=== PATIENT | female | born 1935 | race Caucasian/White ===

== ENCOUNTER 2021-10-04 09:22 | Outpatient (CLI) | payer MEDICARE | END 2021-10-04 09:23 | disposition home or self-care (01) | LOC: CSHWCC 09:22 | PROVIDERS: ATTEND Nurse Practitioner Family | DX: L89.624 Pressure ulcer of left heel, stage 4 (principal); L89.621 Pressure ulcer of left heel, stage 1; I87.2 Venous insufficiency (chronic) (peripheral); S41.102D Unspecified open wound of left upper arm, subsequent encounter; I89.0 Lymphedema, not elsewhere classified; I70.202 Unspecified atherosclerosis of native arteries of extremities, left leg; I25.10 Atherosclerotic heart disease of native coronary artery without angina pectoris; I25.84 Coronary atherosclerosis due to calcified coronary lesion; I63.9 Cerebral infarction, unspecified; I10 Essential (primary) hypertension; Z74.01 Bed confinement status; Z91.81 History of falling | CPT/HCPCS: 11043; 97605; 99203; G0463 ==

== ENCOUNTER 2021-10-11 14:36 | Outpatient (CLI) | payer MEDICARE | END 2021-10-11 14:37 | disposition home or self-care (01) | LOC: CSHWCC 14:36 | PROVIDERS: ATTEND Nurse Practitioner Family | DX: L89.621 Pressure ulcer of left heel, stage 1 (principal); L89.624 Pressure ulcer of left heel, stage 4; L89.896 Pressure-induced deep tissue damage of other site; S41.102D Unspecified open wound of left upper arm, subsequent encounter; I10 Essential (primary) hypertension; I25.84 Coronary atherosclerosis due to calcified coronary lesion; I63.9 Cerebral infarction, unspecified; I70.202 Unspecified atherosclerosis of native arteries of extremities, left leg; I87.2 Venous insufficiency (chronic) (peripheral); I89.0 Lymphedema, not elsewhere classified; Z74.01 Bed confinement status; Z91.81 History of falling | CPT/HCPCS: 99213; G0463 ==

== ENCOUNTER 2021-10-25 11:19 | Outpatient (CLI) | payer MEDICARE | END 2021-10-25 11:20 | disposition home or self-care (01) | LOC: CSHWCC 11:19 | PROVIDERS: ATTEND Nurse Practitioner Family | DX: L89.624 Pressure ulcer of left heel, stage 4 (principal); L89.621 Pressure ulcer of left heel, stage 1; L89.896 Pressure-induced deep tissue damage of other site; I87.2 Venous insufficiency (chronic) (peripheral); S41.102D Unspecified open wound of left upper arm, subsequent encounter; I10 Essential (primary) hypertension; I25.84 Coronary atherosclerosis due to calcified coronary lesion; I63.9 Cerebral infarction, unspecified; I70.202 Unspecified atherosclerosis of native arteries of extremities, left leg; I89.0 Lymphedema, not elsewhere classified; Z74.01 Bed confinement status; Z91.81 History of falling | CPT/HCPCS: 97139; G0463; 99213 ==

== ENCOUNTER 2021-11-04 14:50 | Outpatient (CLI) | payer MEDICARE | END 2021-11-04 14:51 | disposition home or self-care (01) | LOC: CSHWCC 14:50 | PROVIDERS: ATTEND Nurse Practitioner Family | DX: L89.621 Pressure ulcer of left heel, stage 1 (principal); L89.624 Pressure ulcer of left heel, stage 4; L89.890 Pressure ulcer of other site, unstageable; R60.0 Localized edema; I10 Essential (primary) hypertension; I25.84 Coronary atherosclerosis due to calcified coronary lesion; I63.9 Cerebral infarction, unspecified; I70.202 Unspecified atherosclerosis of native arteries of extremities, left leg; I87.2 Venous insufficiency (chronic) (peripheral); I89.0 Lymphedema, not elsewhere classified; Z74.01 Bed confinement status; Z91.81 History of falling ==

== ENCOUNTER 2021-12-07 13:01 | Outpatient (CLI) | payer MEDICARE | END 2021-12-07 13:02 | disposition home or self-care (01) | LOC: CSHWCC 13:01 | PROVIDERS: ATTEND Nurse Practitioner Family | DX: L89.322 Pressure ulcer of left buttock, stage 2 (principal); L89.92 Pressure ulcer of unspecified site, stage 2; L89.312 Pressure ulcer of right buttock, stage 2; L89.90 Pressure ulcer of unspecified site, unspecified stage; R60.0 Localized edema ==

== ENCOUNTER 2021-12-21 12:52 | Outpatient (CLI) | payer MEDICARE, MEDICAID | END 2021-12-21 12:53 | disposition home or self-care (01) | LOC: CSHWCC 12:52 | PROVIDERS: ATTEND Nurse Practitioner Family | DX: L89.322 Pressure ulcer of left buttock, stage 2 (principal); L89.890 Pressure ulcer of other site, unstageable; R60.1 Generalized edema; L89.92 Pressure ulcer of unspecified site, stage 2; L89.312 Pressure ulcer of right buttock, stage 2 | CPT/HCPCS: 29581; 99213; G0463 ==

== ENCOUNTER 2022-02-02 13:13 | Outpatient (CLI) | payer MEDICARE, MEDICAID | END 2022-02-02 13:14 | disposition home or self-care (01) | LOC: CSHWCC 13:13 | PROVIDERS: ATTEND Nurse Practitioner Family | DX: L89.322 Pressure ulcer of left buttock, stage 2 (principal); L89.312 Pressure ulcer of right buttock, stage 2; L89.92 Pressure ulcer of unspecified site, stage 2; L89.890 Pressure ulcer of other site, unstageable; S61.401D Unspecified open wound of right hand, subsequent encounter; R60.0 Localized edema | CPT/HCPCS: 11043; 97605; 99213; G0463 ==